=== PATIENT | female | born 1985 | race Caucasian/White ===

== ENCOUNTER 2018-11-25 06:48 | Emergency (ER) | payer OTHER ==
[2018-11-25] MEDS ORDERED: Ondansetron 4 MG Tab.DIS PO ONE (07:11)
[2018-11-25] MEDS ORDERED: Take Home: Ondansetron 4 MG Tab.DIS, 2 Tab Pack PO ONE (07:27)
--- NOTE | 2018-11-25 07:33 | EDM.PDOC ---
ED HPI GENERAL MEDICAL PROBLEM - General Chief Complaint: Gastrointestinal Problem Stated Complaint: Abdominal cramping, diarrhea, vomiting Time Seen by Provider: 11/25/18 07:05 Source of Information: Reports: Patient History Limitations: Reports: No Limitations - History of Present Illness INITIAL COMMENTS - FREE TEXT/NARRATIVE: Patient comes into the emergency department with complain of diarrhea and vomiting. Patient states that it started approximately 1 hour after she ate at a local restaurant. She states that the food did not taste quite right. At first the patient had diarrhea about every 45 minutes until approximately 2 hours ago when she started dry heaving and vomiting small amounts. Patient did know a quarter size blood smear in the toilet and she came concerned and presented emergency department for further evaluation. Patient denies any fever , chest pain, shortness of breath urinary frequency, hesitancy peripheral edema. States that the symptoms were sudden and abrupt approximately one hour after ingestion of food products. She denies any other symptoms or concerns. Onset: Sudden Location: Reports: Abdomen Quality: Reports: Other Improves with: Reports: None Worsens with: Reports: None Associated Symptoms: Reports: No Other Symptoms left upper and lower abdomen Pain Score (Numeric/FACES): 1 - Related Data Allergies Allergy/AdvReac Type Severity Reaction Status Date / Time No Known Allergies Allergy Verified 11/25/18 07:11 Home Meds: Home Meds Escitalopram [Lexapro] 10 mg PO DAILY 11/25/18 [History] ED ROS GENERAL - Review of Systems Review Of Systems: ROS reveals no pertinent complaints other than HPI. Constitutional: Reports: No Symptoms HEENT: Reports: No Symptoms Respiratory: Reports: No Symptoms Cardiovascular: Reports: No Symptoms Endocrine: Reports: No Symptoms GI/Abdominal: Reports: No Symptoms : Reports: No Symptoms Musculoskeletal: Reports: No Symptoms Skin: Reports: No Symptoms Neurological: Reports: No Symptoms Psychiatric: Reports: No Symptoms Hematologic/Lymphatic: Reports: No Symptoms ED EXAM, GENERAL - Physical Exam Exam: See Below Exam Limited By: No Limitations General Appearance: Alert, WD/WN, No Apparent Distress Neck: Normal Inspection, Supple, Non-Tender, Full Range of Motion Respiratory/Chest: No Respiratory Distress, Lungs Clear, Normal Breath Sounds, No Accessory Muscle Use, Chest Non-Tender Cardiovascular: Normal Peripheral Pulses, Regular Rate, Rhythm, No Edema GI/Abdominal: Normal Bowel Sounds, Soft, Non-Tender, No Distention, No Abnormal Bruit Back Exam: Normal Inspection, Full Range of Motion Extremities: Normal Inspection, Normal Range of Motion, Non-Tender, No Pedal Edema, Normal Capillary Refill Neurological: Alert, Oriented, CN II-XII Intact, Normal Cognition, Normal Gait Psychiatric: Normal Affect, Normal Mood Skin Exam: Warm, Dry, Intact, Normal Color, No Rash Course - Vital Signs Last Recorded V/S: Last Vital Signs Temp 36.4 C 11/25/18 06:48 Pulse 64 11/25/18 06:48 Resp 16 11/25/18 06:48 BP 109/66 11/25/18 06:48 Pulse Ox 99 11/25/18 06:48 - Orders/Labs/Meds Orders: Active Orders 24 hr Category Date Time Status Ondansetron [Take Home: Ondansetron ODT 4 MG, 2 Tab Med 11/25/18 07:27 Once Pack] 1 packet PO ONETIME ONE Meds: Medications Discontinued Medications Generic Name Dose Route Start Last Admin Trade Name Isaiahq PRN Reason Stop Dose Admin Ondansetron HCl 4 mg 11/25/18 07:11 11/25/18 07:17 Zofran Odt PO 11/25/18 07:12 4 mg ONETIME ONE Administration Departure - Departure Time of Disposition: 07:30 Disposition: Home, Self-Care 01 Condition: Good Clinical Impression: Vomiting, Diarrhea Food poisoning Qualifiers: Encounter type: initial encounter Injury intent: accidental or unintentional Qualified Code(s): T62.91XA - Toxic effect of unspecified noxious substance eaten as food, accidental (unintentional), initial encounter - Discharge Information *PRESCRIPTION DRUG MONITORING PROGRAM REVIEWED*: Not Applicable *COPY OF PRESCRIPTION DRUG MONITORING REPORT IN PATIENT DEBRA: Not Applicable Instructions: Food Poisoning Additional Instructions: 1. rest 2. slowly increase your water intake. 3. Once you feel you can keep that down increase the food slowly 3. Follow up as necessary with PCP or return to ER if symptoms progress or worsen 4. Call with any questions or concerns - My Orders Last 24 Hours: My Active Orders 11/25/18 07:27 Ondansetron [Take Home: Ondansetron ODT 4 MG, 2 Tab Pack] 1 packet PO ONETIME ONE - Assessment/Plan Last 24 Hours: My Active Orders 11/25/18 07:27 Ondansetron [Take Home: Ondansetron ODT 4 MG, 2 Tab Pack] 1 packet PO ONETIME ONE Assessment:: 1. foodborne illness- Plan: 1. Zofran ODT given in ER. 2. Education provided to the patient of what to watch for, time frame, OTC medications, increase water and food intake, and follow up or when to return to the ER. 3. All questions and concerns addressed prior to discharge.
== END 2018-11-25 07:45 | disposition home or self-care (01) ==
LOC: VM.ED 06:48
DX: T62.91XA Toxic effect of unspecified noxious substance eaten as food, accidental (unintentional), initial encounter (principal); R11.10 Vomiting, unspecified; R19.7 Diarrhea, unspecified
CPT/HCPCS: 99283; A9270-GY